=== PATIENT | male | born 1990 | race African-American/Black ===

== ENCOUNTER 2019-07-25 03:51 | Inpatient (IN) | payer OTHER ==
[~2019-07-25] VITALS: Ht 165.1 cm; Wt 64.9 kg
[2019-07-25] MEDS ORDERED: FLUORESCEIN SODIUM 1MG/STRIP LEFTEYE ONE (04:30)
[2019-07-25] MEDS ORDERED: TETRACAINE 0.5% OPHTH DROPS 4ML LEFTEYE ONE (04:30)
[2019-07-25] MEDS ORDERED: HYDRALAZINE 20MG/ML VIAL IV ONE (05:30)
[2019-07-25] MEDS ORDERED: LIDOCAINE HCL/PF 1% 10 MG/ML 5ML VIAL IJ ONE (05:45)
[2019-07-25] MEDS ORDERED: BACITRACIN ZINC OINT UDPKT TOP ONE (05:45)
[2019-07-25] MEDS ORDERED: AZITHROMYCIN 500 MG TABLET PO SCH (07:00)
[2019-07-25 07:07] LABS: BASOPHILS % 0.1 % (0.0-2.0); EOSINOPHILS % 0.1 % (0.0-5.0); HEMATOCRIT. 51.3 % (42.0-52.0); HEMOGLOBIN. 17.5 g/dL (14.0-18.0); LYMPHOCYTES % 8.4 % (20.0-50.0); MEAN CORPUSCULAR HEMOGLOBIN 28.7 pg (28.0-32.0); MEAN CORPUSCULAR VOLUME 84.4 fL (80.0-94.0); MEAN PLATELET VOLUME 8.4 fl (7.4-10.4); MONOCYTES % 5.6 % (2.0-8.0); NEUTROPHILS % 85.8 % (40.0-76.0); PLATELET 278 x1000/uL (130-400); RED BLOOD CELL COUNT 6.08 mill/uL (4.7-6.1); RED CELL DISTRIBUTION WIDTH 14.3 % (11.6-14.6)
[2019-07-25 07:10] LABS: CHLORIDE 109 mEq/L (98-107)
[2019-07-25 07:15] LABS: C REACTIVE PROTEIN QUANT < 0.2 mg/L (0.0-3.0)
[2019-07-25 08:17] LABS: BG BASE EXCESS -2.6 mmol/L (-2.0-2.0); BG CARBOXYHEMOGLOBIN 0.7 % (0.5-1.5); BG DEOXYHEMOGLOBIN 6.5 % (0.0-5.0); BG FRACTION INSPIRED OXYGEN 32; BG HCO3 ACT 22.4 mmol/L (22.0-26.0); BG METHEMOGLOBIN 0.2 % (0.0-1.5); BG OXYGEN SATURATION 93.4 % (92.0-98.5); BG OXYHEMOGLOBIN 92.6 % (94.0-97.0); BG PCO2 39.9 mmHg (35.0-45.0); BG PH 7.367 (7.350-7.450); BG PO2 67.2 mmHg (75.0-100.0); BG SAMPLE SITE RIGHT BRACHIAL; BG TOTAL HEMOGLOBIN 16.4 g/dL (12.0-18.0); BG VENT MODE NASAL CANNULA
[2019-07-25 08:39] LABS: PROTHROMBIN TIME 10.7 sec (9.6-11.0)
[2019-07-25 08:44] LABS: CREATINE KINASE 600 IU/L (39-308)
[2019-07-25] MEDS ORDERED: MORPHINE SULFATE 2 MG/ML CPJ (NOT FOR IM USE) IV PRN (09:15)
[2019-07-25] MEDS ORDERED: CEFTRIAXONE 1 G PREMIX 50 ML IV SCH ×2 (09:15→09:42)
[2019-07-25] MEDS ORDERED: POTASSIUM CHLORIDE 20MEQ TABLET SR PO NR (09:45)
[2019-07-25 14:30] VITALS: BP 128/77
[2019-07-25] MEDS ORDERED: AZITHROMYCIN 500 MG TABLET PO NR (15:15)
[2019-07-25] MEDS ORDERED: HYDROCODONE/ACETAMINOPHEN 10/325MG TABLET PO PRN ×2 (15:30)
[2019-07-25 16:00] VITALS: BP 136/91
[2019-07-25 16:31] VITALS: BP 128/77
[2019-07-25] MEDS: ALBUTEROL 6.7GM HFA INHALER ORI SCH (17:55)
[2019-07-25 20:00] VITALS: BP 129/88
[2019-07-25 20:07] LABS: CLARITY URINE CLEAR (CLEAR); COLOR URINE YELLOW (YELLOW); KETONES URINE TRACE (NEGATIVE); LEUKOCYTE ESTERASE URINE TRACE (NEGATIVE); NITRITE URINE NEGATIVE (NEGATIVE); OCCULT BLOOD URINE NEGATIVE (NEGATIVE); PH URINE 6.5 (4.5-8.0); PROTEIN URINE NEGATIVE (NEGATIVE); UROBILINOGEN URINE 0.2 E.U./dL (0.2-1.0)
[2019-07-25 20:44] LABS: *COCAINE SCREEN URINE NEGATIVE (NEGATIVE)
[2019-07-25 20:45] LABS: *BARBITURATES SCREEN URINE NEGATIVE (NEGATIVE); *BENZODIAZEPINES SCREEN URINE NEGATIVE (NEGATIVE); CANNABINOID URINE SCREEN PRESUMTIVE POSITIVE (NEGATIVE); METHADONE URINE SCREEN NEGATIVE (NEGATIVE); OPIATES URINE SCREEN NEGATIVE (NEGATIVE)
[2019-07-25 20:46] LABS: *AMPHETAMINES SCREEN URINE NEGATIVE (NEGATIVE); PHENCYCLIDINE URINE SCREEN NEGATIVE (NEGATIVE)
[2019-07-25] MEDS: GUAIFENESIN 600MG ER TABLET PO SCH (22:29)
[2019-07-26 01:55] VITALS: BP 132/78
[2019-07-26 04:00] VITALS: BP 126/69
[2019-07-26] MEDS: ALBUTEROL 6.7GM HFA INHALER ORI SCH (04:30)
[2019-07-26 05:51] LABS: CHLORIDE 106 mEq/L (98-107)
[2019-07-26 05:52] LABS: BASOPHILS % 0.2 % (0.0-2.0); EOSINOPHILS % 0.2 % (0.0-5.0); HEMATOCRIT. 43.9 % (42.0-52.0); HEMOGLOBIN. 15.2 g/dL (14.0-18.0); LYMPHOCYTES % 17.5 % (20.0-50.0); MEAN CORPUSCULAR HEMOGLOBIN 28.9 pg (28.0-32.0); MEAN CORPUSCULAR VOLUME 83.3 fL (80.0-94.0); MEAN PLATELET VOLUME 8.3 fl (7.4-10.4); MONOCYTES % 7.2 % (2.0-8.0); NEUTROPHILS % 74.9 % (40.0-76.0); PLATELET 239 x1000/uL (130-400); RED BLOOD CELL COUNT 5.27 mill/uL (4.7-6.1); RED CELL DISTRIBUTION WIDTH 13.6 % (11.6-14.6)
[2019-07-26 08:00] VITALS: BP 131/57
[2019-07-26] MEDS ORDERED: LEVO750T21 MT (08:53)
[2019-07-26] MEDS ORDERED: CEFTRIAXONE 1 G PREMIX 50 ML IV SCH (09:00)
[2019-07-26] MEDS ORDERED: AZITHROMYCIN 250 MG TABLET PO SCH (09:00)
[2019-07-26] MEDS ORDERED: AZITHROMYCIN 500 MG TABLET PO SCH (09:00)
[2019-07-26] MEDS: GUAIFENESIN 600MG ER TABLET PO SCH (09:19)
[2019-07-26 12:10] VITALS: BP 135/95
[2019-07-26 14:40] VITALS: BP 131/57
== END 2019-07-26 15:55 | disposition home or self-care (01) | DRG 720 ==
LOC: ER 03:51 → 7WST 07:28 → EDBEDREQSVC 07:34 → EDBEDREQTM 07:34 → EDBEDREQ 07:34 → ENRESERV 13:48 → 6WST 23:41
PROVIDERS: ADMIT Internal Medicine; ATTEND Internal Medicine
DX: A41.9 Sepsis, unspecified organism (principal); J96.01 Acute respiratory failure with hypoxia; J84.9 Interstitial pulmonary disease, unspecified; D68.59 Other primary thrombophilia; E87.8 Other disorders of electrolyte and fluid balance, not elsewhere classified; E87.6 Hypokalemia; Z20.828 Contact with and (suspected) exposure to other viral communicable diseases; S01.01XA Laceration without foreign body of scalp, initial encounter; Y08.89XA Assault by other specified means, initial encounter; Y93.89 Activity, other specified; Y92.89 Other specified places as the place of occurrence of the external cause; Y99.8 Other external cause status
CPT/HCPCS: 36415; 36600; 70486; 70490; 71045; 80048; 80053; 80305; 81003; 82375; 82550; 82728; 82805; 83605; 83615; 84145; 84484; 85025; 85379; 85384; 86140; 93005; 94640; 99285; J0696; J3490; U0003-CS